=== PATIENT | male | born 1995 | race African-American/Black ===

== ENCOUNTER 2019-03-06 21:48 | Emergency (ER) | payer MEDICAID, OTHER ==
[~2019-03-06] VITALS: Ht 177.8 cm; Wt 67.1 kg
[2019-03-06 22:08] VITALS: BP 111/72
== END 2019-03-07 04:29 | disposition left against medical advice (07) ==
LOC: EDBD 21:48 → ER 21:48
DX: R11.10 Vomiting, unspecified (principal); Z53.21 Procedure and treatment not carried out due to patient leaving prior to being seen by health care provider